=== PATIENT | female | born 1980 ===

== ENCOUNTER → 2018-11-21 | Day surgery (SDC) | payer OTHER ==
[~2018-11-21] MED LIST: COLACE100 MG PO; MOTRIN IB200 MG PO; PERCOCET 5-3251 EACH PO
== END | disposition home or self-care (01) ==
LOC: ADM 11-20 10:45 → CIR.AMB 08:30
DX: Z30.2 Encounter for sterilization (principal); Z15.02 Genetic susceptibility to malignant neoplasm of ovary

== ENCOUNTER 2020-07-30 06:14 | Day surgery (SDC) | payer OTHER ==
[~2020-07-30 06:14] MED LIST changes: +PROTONIX40 MG PO
== END 2020-07-30 13:20 | disposition home or self-care (01) ==
LOC: CIR.AMB 06:14
PROVIDERS: ATTEND Surgery
DX: K42.9 Umbilical hernia without obstruction or gangrene (principal); K80.10 Calculus of gallbladder with chronic cholecystitis without obstruction; Z20.822 Contact with and (suspected) exposure to COVID-19